=== PATIENT | female | born 1955 | race Caucasian/White ===

== ENCOUNTER 2017-08-29 09:01 | Outpatient (CLI) | payer OTHER ==
[2013-11-30 13:36] VITALS: BP 100/68
== END 2017-08-29 09:02 ==
LOC: RAD 09:01
PROVIDERS: ATTEND Family Medicine
DX: M85.80 Other specified disorders of bone density and structure, unspecified site (principal); Z78.0 Asymptomatic menopausal state
CPT/HCPCS: 77080